=== PATIENT | female | born 1945 | race Caucasian/White ===

== ENCOUNTER → 2016-11-06 | Outpatient (CLI) | payer MEDICARE, BC ==
[~2016-11-06] MED LIST: BENAZEPRIL-HCTZ1 T21 PO; TYLENOL #3 PO
--- NOTE | ~2016-11-06 | PFT ---
[id number] [facility] [address] [place], [place] [address] [id number] O MR#: [id number] NAME: ULISES DEL TORO ROOM: SEX: F STUDY DATE/TIME: 11/06/2016 : 1945 AGE: 71 STUDY DESCRIPTION: Attending Physician: Jennifer Ferrera A.P.R.N. Referring Physician: Jennifer Ferrera A.P.R.N. Primary Care Physician: Ellen Zambrano M.D. PULMONARY DIAGNOSTIC REPORT EXAM Pulmonary function test. FINDINGS Test meets ATS criteria for acceptability and repeatability. Please see the scan sheet for flow volume loops and actual lung volume values. Spirometry shows moderate combined obstruction and restriction. There is airtrapping present. There is no significant bronchodilator response. Diffusion capacity is severely reduced. It corrects for alveolar ventilation. The airway resistance is more than needed. The restrictive component is significant stronger than the obstructive component. Dictated by... Ramone Jaramillo TD: 12/07/2016 10:17 JOB #: [id number] PULMONARY DIAGNOSTIC REPORT Page 1 of 1
--- NOTE | ~2016-11-06 | CR63 ---
[facility] A Service of [facility] & [facility] RADIOLOGY TEXT RESULTS PATIENT: ULISES DEL TORO LOCATION: [facility] : 49 UNIT #: [id number] AGE: [address]: Jennifer Ferrera SEX: F ORDER DR: [id number] [facility] [address] [place], [place] [address] [id number] O MR#: [id number] Acc #: [id number] NAME: ULISES DEL TORO : 1945 SEX: F STUDY DATE/TIME: 11/06/2016 14:16 UNIT: [facility] ROOM: STUDY DESCRIPTION: CR Chest 2 View Attending Physician: Jennifer Ferrera A.P.R.N. Referring Physician: Jennifer Ferrera A.P.R.N. Ordering Physician: Jennifer Ferrera A.P.R.N. Primary Care Physician: Ellen Zambrano M.D. MEDICAL IMAGING REPORT This report is preliminary unless electronic signature is present EXAM Chest x-ray 11/06 INDICATIONS Shortness of air for 2 weeks. Patient on oxygen. FINDINGS 2 views of the chest are compared with 10/08/2016. The heart size is stable. There is marked chronic elevation of the left hemidiaphragm with some mild left base atelectasis. There is some mild right base atelectasis or infiltrate which persists. No pneumothorax. There is chronic deformity of the left humeral head and glenoid. IMPRESSION Stable elevation of the left hemidiaphragm with some mild left base atelectasis. There is persistent infiltrate or atelectasis in the right base as well which is relatively stable. Dictated by... Titus Marie Jr., M.D. THIS IS AN ELECTRONICALLY VERIFIED REPORT Titus Marie Jr., M.D. at 11/06/2016 3:32 PM VON/rebel TD: 11/06/2016 15:17 JOB #: [id number] MEDICAL IMAGING REPORT Page 1 of 1 COPY
== END | disposition home or self-care (01) ==
LOC: CRC 12:58
DX: R06.02 Shortness of breath (principal); J98.11 Atelectasis; J98.6 Disorders of diaphragm
CPT/HCPCS: 71020; 94060; 94726; 94729